=== PATIENT | male | born 2000 | race Caucasian/White ===

== ENCOUNTER 2022-07-10 10:27 | Day surgery (SDC) | payer OTHER, SELFPAY ==
[2022-07-10] VITALS (11 sets, daily range): BP systolic 124–157; BP diastolic 61–98; PULSE 80–124; RESP 12–22; TEMP 36.7–37.2; O2SAT 98–100
--- NOTE | ~2022-07-10 | CT_ITS ---
CT Abdomen and Pelvis with contrast. History: Abdominal pain. Spiral CT of the abdomen and pelvis was performed after the administration of intravenous contrast. 1 00 cc of Omnipaque 350 was administered intravenously without complication. Dose reduction technique was used on this scan by utilizing automated exposure control and iterative reconstruction technique. The dose-length product (DLP) was 887.73 mGy-cm. Findings: Scans through the lung bases demonstrate mild atelectatic change. The liver, spleen, pancreas, gallbladder, adrenals and kidneys are within normal limits. No evidence of aortic aneurysm. No retroperitoneal lymphadenopathy is seen. There is no evidence of bowel obstruction. There is an 8 mm appendicolith at the base of the appendix . Appendix is dilated to 13 mm, with periappendiceal inflammatory stranding. No abscess or free air. [place] right lower quadrant lymph nodes are present, reactive. Images through the pelvis were performed. Urinary bladder unremarkable. Prostate gland and seminal ve sicles are unremarkable. No ascites is seen. Impression: Acute appendicitis, as detailed above. No abscess or free air. Reviewed, dictated and finalized at [facility]. D DAY CARE PROVIDER Impression: Acute appendicitis, as detailed above. No abscess or free air.
[2022-07-10 10:44] LABS: Basophils Absolute Auto 0.1 K/mm3 (0.0-0.1); Basophils Percent Auto 0.3 % (0.2-1.2); Eosinophils Percent Auto 0.1 % (0-4.4); Hematocrit 47.4 % (42.0-52.0); Hemoglobin 15.8 g/dL (14.0-18.0); Immature Granulocyte Absolute 0.09 K/mm3 (0.00-0.031); Immature Granulocyte Percent A 0.5 % (0-0.5); Lymphocytes Absolute Auto 2.29 K/mm3 (0.9-3.2); Lymphocytes Percent Auto 11.5 % (18.3-44.2); Mean Corpuscular HGB Conc 33.3 g/dl (32-36); Mean Corpuscular Hemoglobin 28.7 pg (26-34); Mean Platelet Volume 8.9 fl (7.4-10.4); Monocytes Absolute Auto 0.9 K/mm3 (0.1-0.6); Monocytes Percent Auto 4.5 % (2.6-8.5); Neutrophils Absolute Auto 16.7 K/mm3 (1.3-6.7); Neutrophils Percent Auto 83.1 % (45.5-73.1); Platelet Count Result 460 k/mm3 (150-375); Red Blood Count 5.51 M/mm3 (4.6-6.20); Red Cell Distribution Width 12.6 % (11.5-14.5)
[2022-07-10 10:54] LABS: Alanine Aminotransferase 26 U/L (6-50); Albumin Level 4.7 g/dL (3.5-5.1); Alkaline Phosphatase 142 U/L (38-126); Anion Gap 10 mmol/L (8-16); Aspartate Amino Transferase 21 U/L (17-59); Bilirubin,Total 0.7 mg/dL (0.2-1.3); Blood Urea Nitrogen 8 mg/dL (9-20); Calcium 9.1 mg/dL (8.4-10.2); Carbon Dioxide 26 mmol/L (22-30); Chloride 102 mmol/L (98-107); Estimated CRCL calculation 167 ml/min; Estimated Glomerular Filt Rate > 60; Glucose 107 mg/dL (65-110); Lipase 35 U/L (23-300); Potassium 4.1 mmol/L (3.4-5.0); Sodium 138 mmol/L (137-145)
[2022-07-10 11:50] LABS: Appearance Urine Clear (Clear); Bilirubin Urine Negative (Negative); Blood Urine Trace-lysed (Negative); Color Urine Yellow (Yellow); Glucose Urine UA Negative (Negative); Ketones Urine Negative (Negative); Leukocyte Esterase Ur Negative LEU/UL (Negative); Nitrate Urine Negative (Negative); Protein Urine Negative (Negative); Specific Grav Ur 1.015 (1.001-1.035); Urobilinogen Urine 0.2 mg/dL (<2.0); pH Urine 6.5 (5.0-9.0)
[2022-07-10 11:55] LABS: Mucus Urine Rare /lpf; RBC Urine 0-2 /hpf (0-2); WBC Urine 0-3 /hpf
[2022-07-10 11:56] LABS: Add Urine Microscopic? YES
--- NOTE | 2022-07-10 12:26 | ED.ABDPAIN ---
HPI - Abdominal Pain General Chief Complaint: Abdominal Pain Stated Complaint: abd pain Time Seen by Provider: 07/10/22 11:22 History of Present Illness HPI narrative: Patient is a 21 years old male who presents ER with right lower quadrant abdominal pain. Ongoing for 2 days. No fevers or chills or sweats. No nausea or vomiting. Pain is worse with movement and going over bumps. Feels better when sitting still. Related Data Allergies Allergy/AdvReac Type Severity Reaction Status Date / Time morphine Allergy Hives Verified 07/10/22 13:04 Review of Systems Review of Systems: All systems reviewed & are unremarkable except as noted in HPI and below Constitutional: Constitutional: Denies chills, Denies fatigue and Denies fever(s) Cardiovascular: Cardiovascular: Denies chest pain, Denies rapid heart rate and Denies radiating jaw, neck or arm pain Respiratory: Respiratory: Denies cough and Denies dyspnea Gastrointestinal: Gastrointestinal: Reports abdominal pain, Denies diarrhea, Denies nausea and Denies vomiting PMFSH Past Medical History Medical History No pertinent past medical history Surgical History Surgical History No pertinent past surgical history Social History Social History Smoking status: Never smoker Alcohol intake: current Alcohol use details: 2 PER MONTH Substance use: current Substance use type: marijuana Other substance usage details: USES DAILY Last use: Last night Living arrangements: with friend(s) Occupation/Education: other Additional occupation/education comments: Works for [employer] and is also a part-time student at [employer] Exam Narrative: GENERAL: Well-appearing, well-nourished, and in no acute distress. HEAD: Normocephalic, atraumatic. EYES: PERRL and EOMI. ENT: Mucous membranes moist. CHEST: Clear to auscultation. No respiratory distress. HEART: Regular rate and rhythm. Normal peripheral pulses. ABDOMEN: Soft, tender palpation to McBurney's point with guarding, nondistended. EXTREMITIES: Normal range of motion. No edema. SKIN: Warm, dry, no rash. NEURO: Alert and oriented x3. PSYCH: Normal mood and affect. Course Course Emergency Course: Patient informed of diagnosis and treatment plan. Dr. Lewis consulted. Patient will go to the OR from the ED to have his appendix removed. Zosyn started. Vital Signs Vital signs: Vital Signs Temperature 98.1 F 07/10/22 10:28 Pulse Rate 109 H 07/10/22 10:28 Respiratory Rate 18 07/10/22 10:28 Blood Pressure 149/98 H 07/10/22 10:28 Pulse Oximetry 100 07/10/22 10:28 Oxygen Delivery Room Air 07/10/22 10:28 Temperature 98.2 F 07/10/22 16:47 Pulse Rate 96 07/10/22 18:15 Respiratory Rate 18 07/10/22 18:15 Blood Pressure 146/87 H 07/10/22 18:15 Pulse Oximetry 99 07/10/22 17:25 Oxygen Delivery Room Air 07/10/22 18:15 Oxygen Flow Rate 6 07/10/22 17:00 MDM - Abdominal Pain Lab Data 07/10/22 10:36 07/10/22 10:36 Labs: Lab Results 07/10/22 07/10/22 07/10/22 Range/Units 10:36 10:36 11:20 WBC 20.0 H (4.5-10.0) K/mm3 RBC 5.51 (4.6-6.20) M/mm3 Hgb 15.8 (14.0-18.0) g/dL Hct 47.4 (42.0-52.0) % MCV 86.0 (80-100) fl MCH 28.7 (26-34) pg MCHC 33.3 (32-36) g/dl RDW 12.6 (11.5-14.5) % Plt Count 460 H (150-375) k/mm3 MPV 8.9 (7.4-10.4) fl Immature Gran % (Auto) 0.5 (0-0.5) % Neut % (Auto) 83.1 H (45.5-73.1) % Lymph % (Auto) 11.5 L (18.3-44.2) % [place] % (Auto) 4.5 (2.6-8.5) % Eos % (Auto) 0.1 (0-4.4) % Baso % (Auto) 0.3 (0.2-1.2) % Lymph # (Auto) 2.29 (0.9-3.2) K/mm3 [place] # (Auto) 0.9 H (0.1-0.6) K/mm3 Eos # (Auto) 0.0 (0-0.3) K/mm3 Baso # (Auto) 0.1 (0.0-0.1) K/mm3 Abs Immat Gran
[2022-07-10] MEDS: MORPHINE SULFATE (*CRX) 4 MG/ML INJ IV PUSH (12:42)
--- NOTE | 2022-07-10 13:04 | PC.NURSE ---
Patient called out after morphine administration stating his left upper arm was itching and had hives. Patient denied any breathing problems or swelling to face or throat. No other rash identified on the patient's body. ERP notified and aware. See new orders.
[2022-07-10] MEDS: diphenhydrAMINE HCl INJ 50 MG/ML VIAL 25 MG IV PUSH (13:10)
--- NOTE | 2022-07-10 13:36 | PM.IMHP ---
H&P: HPI History of Present Illness Date/Time: 07/10/22 13:36 Chief Complaint: RLQ abdominal pain Narrative: This is a 21-year-old man who presented to the ER today with RLQ abdominal pain since yesterday. He reports waking from sleep around 8:00 am yesterday morning. He reports RLQ abdominal pain that initially radiated across his entire abdomen but the sharpest pain was in the RLQ. He tried taking Tums without relief. He reports associated nausea but no vomiting. His pain is aggravated by any movement, walking, or bending. When he woke up this morning and his abdominal pain was persistent, he decided to present to the ER. Labs were significant for a WBC count of 20,000. CT scan of the abdomen and pelvis showed acute appendicitis without evidence of perforation or abscess. Our service was contacted by the ED provider. He is now seen for acute appendicitis. He reports his abdominal pain has localized more to the RLQ. He also believes he recently had COVID with symptoms starting on 06/27/22. He had cough, congestion, sore throat, and fatigue. His girlfriend had similar symptoms and tested positive for COVID. He did not actually test but due to the close contact, he assumed he was positive. His symptoms have resolved. He took an at home COVID test yesterday that was negative. No previous abdominal surgeries. He was given one dose of IV Zosyn in the ER. Review of Systems Review of Systems: All systems reviewed & are unremarkable except as noted in HPI and below Constitutional: Constitutional: Reports no additional constitutional complaints, Denies chills, Denies fatigue and Denies fever(s) Eyes: Eyes: Reports no additional eye complaints ENT: Reports system reviewed and no additional complaints, except as documented and Denies dizziness Cardiovascular: Cardiovascular: Reports no additional cardiovascular complaints, Denies chest pain and Denies leg edema Respiratory: Respiratory: Reports no additional respiratory complaints, Denies cough and Denies dyspnea Gastrointestinal: Gastrointestinal: Reports as per HPI, Reports no additional gastrointestinal complaints, Reports abdominal pain, Denies change in bowel habits, Denies change in stool character, Denies constipation, Denies diarrhea, Reports nausea and Denies vomiting Genitourinary: Genitourinary: Reports no additional male genitourinary complaints and Denies dysuria Musculoskeletal: Musculoskeletal: Reports no additional musculoskeletal complaints, Denies abnormal gait and Denies joint swelling Integumentary/Breasts: Skin/Breast: Reports system reviewed and no additional complaints, except as docu and Denies jaundice Neurologic: Reports system reviewed and no additional complaints, except as documented, Denies focal weakness, Denies numbness and Denies tingling PMFSH Past Medical History Medical History No pertinent past medical history Surgical History Surgical History No pertinent past surgical history Social History Social History Smoking status: Never smoker Alcohol intake: never Substance use: current Substance use type: marijuana Other substance usage details: Primarily uses edibles Last use: Last night Occupation/Education: other Additional occupation/education comments: Works for [employer] and is also a part-time student at [employer] [facility] Medications and Allergies Allergies Allergy/AdvReac Type Severity Reaction Status Date / Time morphine Allergy Hives Verified 07/10/22 13:04 Vital Signs Vital Signs - 24 hr 07/10/22 10:28 07/10/22 11:59 07/10/22 13:20 Temperature 98.1 F Pulse Rate 109 H 100 80 Respiratory Rate 18 12 12 Blood Pressure 149/98 H 151/95 H 146/61 H Pulse Oximetry 100 99 98 Oxygen Delivery Room Air Exam Const: General: comfortable, no a
[2022-07-10] MEDS: LACTATED RINGERS 1,000 ML 30 ML IV CONT ×2 (13:50→16:47)
--- NOTE | 2022-07-10 13:51 | WPDHPUPDATE1 ---
History and Physical Update Update Date/Time: 07/10/22 13:51 History and Physical has been reviewed, including an updated exam of the patient. There are NO changes in the patient's condition. Risks, benefits, and alternatives have been discussed and questions answered. Patient agrees to proceed with procedure.
--- NOTE | 2022-07-10 14:03 | WPDANESEPPF ---
Anes - Initial Pre Proc Eval Procedure: Operation Date: 07/10/22 15:30 Proposed Procedures p Laparoscopic Appendectomy - Bill Lewis MD Date/Time: 07/10/22 14:03 Surgeon: Bill Lewis MD Pre Op Diagnosis: abd pain Patient Data Age: 21 Gender: M Height: 1.8 m Weight: 117 kg Last Vital Signs Temp 37.2 C 07/10/22 13:48 Pulse 97 07/10/22 13:48 Resp 18 07/10/22 13:48 BP 149/84 H 07/10/22 13:48 Pulse Ox 100 07/10/22 13:48 O2 Del Method Room Air 07/10/22 13:48 Allergies Allergy/AdvReac Type Severity Reaction Status Date / Time morphine Allergy Hives Verified 07/10/22 13:04 Laboratory Tests 07/10/22 07/10/22 07/10/22 10:36 10:36 11:20 WBC 20.0 K/mm3 H K/mm3 (4.5-10.0) RBC 5.51 M/mm3 M/mm3 (4.6-6.20) Hgb 15.8 g/dL g/dL (14.0-18.0) Hct 47.4 % % (42.0-52.0) MCV 86.0 fl fl (80-100) MCH 28.7 pg pg (26-34) MCHC 33.3 g/dl g/dl (32-36) RDW 12.6 % % (11.5-14.5) Plt Count 460 k/mm3 H k/mm3 (150-375) MPV 8.9 fl fl (7.4-10.4) Immature Gran % (Auto) 0.5 % % (0-0.5) Neut % (Auto) 83.1 % H % (45.5-73.1) Lymph % (Auto) 11.5 % L % (18.3-44.2) [place] % (Auto) 4.5 % % (2.6-8.5) Eos % (Auto) 0.1 % % (0-4.4) Baso % (Auto) 0.3 % % (0.2-1.2) Lymph # (Auto) 2.29 K/mm3 K/mm3 (0.9-3.2) [place] # (Auto) 0.9 K/mm3 H K/mm3 (0.1-0.6) Eos # (Auto) 0.0 K/mm3 K/mm3 (0-0.3) Baso # (Auto) 0.1 K/mm3 K/mm3 (0.0-0.1) Abs Immat Gran (auto) 0.09 K/mm3 H K/mm3 (0.00-0.031) Absolute Neuts (auto) 16.7 K/mm3 H K/mm3 (1.3-6.7) Absolute Nucleated RBC 0.0 K/mm3 K/mm3 (0.0-0.012) Nucleated RBC % 0.0 % % (0.0-0.2) Sodium 138 mmol/L mmol/L (137-145) Potassium 4.1 mmol/L mmol/L (3.4-5.0) Chloride 102 mmol/L mmol/L (98-107) Carbon Dioxide 26 mmol/L mmol/L (22-30) Anion Gap 10 mmol/L mmol/L (8-16) BUN 8 mg/dL L mg/dL (9-20) Creatinine 0.80 mg/dL mg/dL (0.7-1.3) Estim Creat Clear Calc 167 ml/min ml/min Estimated GFR > 60 (59 - ) Glucose 107 mg/dL mg/dL (65-110) Calcium 9.1 mg/dL mg/dL (8.4-10.2) Total Bilirubin 0.7 mg/dL mg/dL (0.2-1.3) AST 21 U/L U/L (17-59) ALT 26 U/L U/L (6-50) Alkaline Phosphatase 142 U/L H U/L (38-126) Total Protein 8.0 g/dL g/dL (6.3-8.2) Albumin 4.7 g/dL g/dL (3.5-5.1) Lipase 35 U/L U/L (23-300) Urine Color Yellow (Yellow) Urine Appearance Clear (Clear) Urine pH 6.5 (5.0-9.0) Ur Specific [place] 1.015 (1.001-1.035) Urine Protein Negative mg/dL mg/dL (Negative) Urine Glucose (UA) Negative mg/dL mg/dL (Negative) Urine Ketones Negative mg/dL mg/dL (Negative) Ur Blood (Man) Trace-lysed (Negative) Urine Nitrate Negative (Negative) Urine Bilirubin Negative (Negative) Urine Urobilinogen 0.2 mg/dL mg/dL (<2.0) Leukocyte Esterase Rfl Negative ABENA/UL ABENA/UL (Negative) Urine RBC 0-2 /hpf /hpf (0-2) Urine WBC 0-3 /hpf /hpf Urine Mucus Rare /lpf /lpf Patient hx anesthesia problems: none Family hx anesthesia problems: none Results Review: All pre-operative results and documents have been reviewed as part of the pre-operative evaluation. [facility] Past Medical History Medical History No pertinent past medical history Surgical History Surgical History No pertinent past surgical history Social History Social History (Reviewed
--- NOTE | 2022-07-10 15:30 | P.OP_ITS ---
Procedure Note - Detailed Date of Procedure 07/10/22 Pre-op Diagnosis Acute appendicitis Post-op Diagnosis Same Procedure Performed Laparoscopic appendectomy Surgeon Bill Lewis MD [employer] Claudia Kern [facility] Anesthesia General and Local (0.25% Marcaine with epinephrine) Indications Patient is a 21-year-old man who developed abdominal pain yesterday morning. The pain got worse and localized to the right lower quadrant. He came to the emergency room. He was tender in the right lower quadrant [place] [id number] scan showed acute appendicitis with appendicolith. After discussion, he is taken to surgery now for laparoscopic appendectomy. Findings Acute non perforated appendicitis, very dilated appendix and large appendicolith just above the appendiceal base Description of Procedure Patient was taken to surgery and induced into general anesthesia. The abdomen is prepped and draped. Trocars were placed in the usual fashion using Access Point optical trocars and a 5 mm camera. The left lower quadrant port was a 10 11 port. Patient was placed in Trendelenburg with the right-side elevated. Dissection was carried out in some inflammatory adhesions were taken down. The appendix was found and carefully dissected free from surrounding structures. The appendix was elevated and the mesoappendix was exposed. Dissection was carried out in the mesoappendix. The appendiceal artery was dissected and then thoroughly cauterized and divided. Some other smaller vessels were also cauterized and divided. Eventually the base of the appendix was skeletonized. A Vicryl endoloop was used to ligate the appendix at its base. The appendix was then amputated just above the ligature. The mucosa of the appendiceal stump was then cauterized. The appendix was placed immediately in an Endo-Catch bag and retrieved through the 10 11 left lower quadrant trocar site. The trocar was replaced. We reviewed the areas of dissection and the appendiceal stump. All looked good with no signs of bleeding or other issues. We then evacuated CO2 and removed the trocar sleeves. Skin wounds were closed with subcuticular 4-0 Monocryl skin suture. The wounds were dressed with Exofin surgical adhesive. The patient was awakened and taken to recovery in good condition. Sponge needle counts were correct x2. Estimated Blood Loss -5 Drains No Packing No Pathology Yes (Appendix) Complications No immediate complications Condition Stable Disposition PACU [facility] Billing Surgery - Charge Forward: Surgery Billing (Laparoscopic appendectomy)
--- NOTE | 2022-07-10 15:37 | PM.DS ---
DS: Admitting Diagnosis Discharge Date 07/10/2022 Admitting Diagnosis Acute appendicitis DS: Discharge Diagnosis Discharge Diagnosis (1) Acute appendicitis: Code(s): K35.80 - Unspecified acute appendicitis Status: Acute DS: Summary Hospital Course Hospital Course: Patient came to the emergency room on 07/10/2022. He had had over 24 hours of abdominal pain that had gotten worse and localized to the right lower quadrant. He was tender in the right lower quadrant with leukocytosis. CT scan showed acute appendicitis. On July 10 he underwent laparoscopic appendectomy. Acute appendicitis was found. The patient did well wounds able to be discharged later on July 10 in good condition. Status at Discharge Functional status at discharge: independent ambulation Overall status at discharge: patient is progressing back to baseline Time Spent with Patient Time attestation: Total time spent providing and/or coordinating discharge services: Time spent: Less than 30 minutes DS: Data Data Completed and Pending Labs on day of discharge: Labs from last 24 hours 07/10/22 07/10/22 07/10/22 11:20 10:36 10:36 WBC 20.0 H RBC 5.51 Hgb 15.8 Hct 47.4 MCV 86.0 MCH 28.7 MCHC 33.3 RDW 12.6 Plt Count 460 H MPV 8.9 Immature Gran % (Auto) 0.5 Neut % (Auto) 83.1 H Lymph % (Auto) 11.5 L [place] % (Auto) 4.5 Eos % (Auto) 0.1 Baso % (Auto) 0.3 Lymph # (Auto) 2.29 [place] # (Auto) 0.9 H Eos # (Auto) 0.0 Baso # (Auto) 0.1 Abs Immat Gran (auto) 0.09 H Absolute Neuts (auto) 16.7 H Absolute Nucleated RBC 0.0 Nucleated RBC % 0.0 Sodium 138 Potassium 4.1 Chloride 102 Carbon Dioxide 26 Anion Gap 10 BUN 8 L Creatinine 0.80 Estim Creat Clear Calc 167 Estimated GFR > 60 Glucose 107 Calcium 9.1 Total Bilirubin 0.7 AST 21 ALT 26 Alkaline Phosphatase 142 H Total Protein 8.0 Albumin 4.7 Lipase 35 Urine Color Yellow Urine Appearance Clear Urine pH 6.5 Ur Specific [place] 1.015 Urine Protein Negative Urine Glucose (UA) Negative Urine Ketones Negative Ur Blood (Man) Trace-lysed Urine Nitrate Negative Urine Bilirubin Negative Urine Urobilinogen 0.2 Leukocyte Esterase Rfl Negative Urine RBC 0-2 Urine WBC 0-3 Urine Mucus Rare Discharge Plan Discharge Patient Disposition: Home, Self-Care Discharge Instructions: 1. May shower the day after surgery over incisions. 2. Call office for: -Wound increasingly painful or bleeding -Vomiting -Fever of greater than 101 degrees 3. Expect some blood on dressing and old blood on skin. 4. If no bowel movement for three days, take 1 oz. (30 ml) Milk of Magnesia, if no results, take Fleets enema. 5. No heavy lifting > 15-20 pounds for 2 weeks. 6. No driving for 3 days or while taking narcotic pain medications. 7. Up walking 10-30 minutes three times per day. 8. Resume previous home medications. 9. Follow-up 10-14 days in office for wound check or as previously scheduled. 10. Oral pain medications prescription to be sent home with patient. 11. NUTRITION: Start out by drinking fluids and increase your diet as tolerated. If you experience nausea, try dry toast, crackers, and 7-UP. If nausea or vomiting persists, contact your surgeon?s office. Stand Alone Forms: General Discharge Instructions Follow-up/Referrals: Bill Lewis MD [Physician] - 2 Weeks PHYSICIAN,FOOD ORDER EXPEDITER [Primary Care Provider] - Discharge Medications: New ketorolac 10 mg tablet 10 mg PO Q6H 4 Days Qty: 16 0RF oxycodone-acetaminophen [Percocet] 5-325 mg tablet 1 - 2 tablet PO Q6H PRN (Reason: pain) Qty: 15 0RF
[2022-07-10] MEDS: BUPIVACAINE/EPINEPHRINE 0.5% 10 ML VIAL 30 ML INFILTRATE (15:45)
== END 2022-07-10 18:30 | disposition home or self-care (01) ==
LOC: ANHED 12:30 → ANHSURGERY 12:56
PROVIDERS: Emergency Provider Emergency Medicine; Visit Provider Surgery
PROC: 0DTJ4ZZ Resection of Appendix, Percutaneous Endoscopic Approach (ICD-10-PCS; CPT 44970; principal; 2022-07-10 15:30)
DX: K35.80 Unspecified acute appendicitis (principal); F12.90 Cannabis use, unspecified, uncomplicated; E66.9 Obesity, unspecified
CPT/HCPCS: 44970; 36415; 74177; 80053; 81001; 83690; 85025; 88304; 96365; 96375; 99285; J1100; J1200; J2250; J2270; J2405; J2543; J2704; J2710; J3010; J7030; J7120; Q9967